=== PATIENT | female | born 1960 | race Caucasian/White ===

== ENCOUNTER → 2017-01-18 | Outpatient (CLI) | payer MEDICARE, MEDICAID ==
[~2017-01-18] MED LIST: ALBU0.632 IH; ALBU0.8322 IH; ALBU8.5H2 IH; ALPR.25T PO; ASP325T; ASP325T PO; ASPI-587 PO; ASPI-808 PO; ASPI-983 PO; ASPI325T32 PO; ATOR20TA66 PO; BENZ100C18 PO; BUTA1TAB55 PO; CALC-760 PO; CEPH500C PO; CLOP75TA PO; CLOP75TA28 PO; CYCL10TA9 PO; DIAZ10TA PO; DIAZ10TA3 PO; FENO135C; FENO135C PO; FENO160T PO; FENO160T12 PO; FLUT16SP22; FLUT16SP22 NSEACH; GLIP10TA13; GLIPIZIDE; GLUCOPHAGE; HDR4T PO; INSA10V SQ; INSASP10V SQ; INSU100I5; INSU100V6 SQ; ISM60TCR PO; ISOS30TA4 PO; ISOS30TA7 PO; LEVAMIR INSULIN; LEVO300T5 PO; LEVO50TA6 PO; LEVO50TA63 PO; LEVO750T6 PO; LIRA0.6P3 SQ; LISI5TAB PO; LOSA25TA15 PO; LOSA25TA21 PO; LSRT50T PO; LVT.15T; LVT.15T PO; MECL50TA PO; MELO7.5T PO; MEPE50TA PO; MEPE50TA2 PO; METF1000 PO; METO-274 PO; METO100T2 PO; METO100T5 PO; METO200T2 PO; METO50TA7 PO; METOPROLOL; MTF500T PO; MTP50T; MTP50T PO; MULT-608 PO; NCT21TD TD; NF-ESOM40C PO; NFMET1000; NITR0.4T12 SL; NOVALOG INSULIN SC; NTR.4SL SL; OMEG1CAP51 PO; OMEP20CA12 PO; ONDAN4ODT PO; PRD20T PO; PROC10TA23 PO; PROP1TAB77 PO; RABE20TA PO; SCR1T PO; SYNTHROID; TRAM50TA2 PO; TRIA1CAP4 PO; TRM50T PO; [UNRECOGNIZED DRUG - CODE]
--- OUTSIDE RECORDS SUMMARY | 2017-01-18 09:52 | XMS REPORT | Continuity of Care Document ---
Author Author [facility] Organization [facility] Address Unknown Phone Unavailable Care Team Providers Care Drapery Inspector Name Role Phone PCP Unavailable Source Comments Some departments are not documenting in the electronic medical record. If you do not see the information that you expected, contact Release of Information in the Health Information Management department at [phone] for further assistance in locating additional records.[facility] Active Allergies and Adverse Reactions Not on File Current Medications Not on file Active Problems Not on file Social History Tobacco Use Types Packs/Day Years Used Date Never Assessed Plan of Care Health Maintenance Due Date Last Done Comments Hepatitis C Screening 1960 Physical (Comprehensive) 1969 Exam Pertussis Vaccine 1973 Tetanus Vaccine 1979 Cervical Cancer Screening 1983 Breast Cancer Screening 2002 Colorectal Cancer 2012 Screening Influenza Vaccine 08/02/2016 Results from Last 3 Months Not on file
--- NOTE | 2017-01-18 12:28 | Diagnostic Imaging Report ---
Bilateral screening mammogram. The current study was also evaluated with a Computer Aided Detection (CAD) system. INDICATION: Screening. No current complaints stated on the questionnaire. COMPARISON: 11/04/2015. FINDINGS: The breasts are composed of scattered fibroglandular densities. Stable benign-appearing nodules from multiple prior exams seen bilaterally may relate to intramammary lymph nodes. Benign-appearing calcifications also noted. Allowing for technique and positional differences, no suspicious change is seen. IMPRESSION: No significant change. ACR BI-RADS Category 2: Benign findings. Result letter will be mailed to the patient. Note: At least 10% of breast cancer is not imaged by mammography. Dictated by: Dictated on workstation # [id number]
== END ==
LOC: RAD 09:49
PROVIDERS: ATTEND Internal Medicine
DX: Z12.31 Encounter for screening mammogram for malignant neoplasm of breast (principal)
CPT/HCPCS: 77067

== ENCOUNTER 2017-04-16 17:55 | Emergency (ER) | payer MEDICARE, MEDICAID ==
[~2017-04-16] VITALS: Ht 172.7 cm; Wt 112.9 kg
[2017-04-16] MEDS ORDERED: RT-ALBUTEROL/IPRATROPIUM 3 ML (DUONEB) VIAL INH ONE (18:30)
--- NOTE | 2017-04-16 19:01 | Diagnostic Imaging Report ---
CLINICAL INDICATION: Patient having allergic reaction that started a few hours ago. Patient has shortness of air. Exam: Chest x-ray PA and lateral views. Comparisons: Chest x-ray dated 03/28/2016. Findings: Lungs/pleura: There is interval development of a small area of atelectasis versus infiltrate in the left lung base. Otherwise lungs are clear. There is no pneumothorax. There is no pleural effusion. Mediastinum: Unremarkable. Pulmonary vasculature: Unremarkable. Heart: Unremarkable. Bones/extrathoracic soft tissue: There are moderately hypertrophic degenerative osteophytes scattered throughout the thoracic spine. Impression: There is interval development of minimal atelectasis versus infiltrate in the left lung base. Dictated by: Dictated on workstation # [id number]
[2017-04-16 19:18] LABS: BASOPHILS % (AUTO) 0 % (0-10); EOSINOPHILS % (AUTO) 0 % (0-10); LYMPHOCYTES # (AUTO) 1.6 X 10^3 (1.0-4.0); LYMPHOCYTES % (AUTO) 12 % (12-44); MEAN CORPUSCULAR HEMOGLOBIN 29 PG (25-34); MEAN CORPUSCULAR HGB CONC 33 G/DL (32-36); MEAN CORPUSCULAR VOLUME 89 FL (80-99); MEAN PLATELET VOLUME 10.8 FL (7.4-10.4); MONOCYTES # (AUTO) 0.5 X 10^3 (0.0-1.0); MONOCYTES % (AUTO) 4 % (0-12); NEUTROPHILS # (AUTO) 11.5 X 10^3 (1.8-7.8); NEUTROPHILS % (AUTO) 85 % (42-75); PLATELET COUNT 307 10^3/uL (130-400); RED BLOOD COUNT 4.73 10^6/uL (4.35-5.85); RED CELL DISTRIBUTION WIDTH 13.6 % (10.0-14.5); WHITE BLOOD COUNT 13.6 10^3/uL (4.3-11.0)
[2017-04-16 19:27] LABS: PROTHROMBIN TIME PATIENT 12.7 SEC (12.2-14.7)
--- NOTE | 2017-04-16 19:28 | ED General ---
General Chief Complaint: Respiratory Problems Stated Complaint: ALLERGIC REACTION, CHEST PAIN Nursing Triage Note: C/o progressive soa. Pt thinks she is having a allergic reaction. c/o tightness in abdomen and arms. No hives or rash noted. Redness noted to face however patients states her face is always red when taking prednison. Pt was seen at [facility] yesterday and started on Z-max and prednisone. Had chest pain last night. Nursing Sepsis Screen: No Definite Risk Source of Information: Patient Exam Limitations: No Limitations History of Present Illness Time Seen by Provider: 18:17 Initial Comments This 56-year-old woman presents to the emergency room with multiple complaints including cough, dyspnea, bloating, generalized skin erythema, tightness in the hands and feet, and blood sugar of 598 at home. She was seen at the [facility] walk- in clinic yesterday and started on prednisone 40 mg daily and azithromycin. She has had frequent nosebleeds as well. She had one episode of chest pain last night that was relieved by nitroglycerin. No chest pain today. She takes aspirin and Plavix daily. Review of her chart notes a cardiac catheterization in March 2016 in which angioplasty was performed. Patient continues to smoke despite her problems. Patient notes that she has had skin flushing with prior use of steroids. Allergies and Home Medications Allergies Coded Allergies: enalaprilat (Verified Allergy, Severe, 12/18/12) codeine (Verified Allergy, Intermediate, SWALLOWING DIFFICULTY, CAN TAKE MORPHINE W/O PROBLEM, 12/18/12) Iodinated Contrast Media - IV Dye (Verified Allergy, Mild, 12/18/12) furosemide (Verified Allergy, Mild, 12/18/12) hydrocodone (Verified Allergy, Mild, 12/18/12) insulin detemir (Verified Allergy, Mild, 12/18/12) amlodipine (Verified Allergy, Unknown, 12/18/12) Uncoded Allergies: ENALAPRIL (Allergy, Unknown, 10/29/14) Home Medications Aspirin 81 Mg Tablet., 81 MG PO DAILY, #100 Ref 4 Prescribed by: JOSESITO MERCADO on 03/29/16 0710 Atorvastatin Calcium 20 Mg Tablet, 20 MG PO DAILY, (Reported) Clopidogrel Bisulfate 75 Mg Tablet, 75 MG PO DAILY, (Reported) Diazepam 10 Mg Tablet, 10 MG PO BID, (Reported) Fenofibrate 160 Mg Tablet, 160 MG PO DAILY, (Reported) Fluticasone Propionate 16 Gm Perry.susp, 1 SPRAY NSEACH BID PRN for ALLERGIES, ( Reported) Insulin Glargine,Hum.rec.anlog 100 Unit/1 Ml Vial, 40 UNITS SQ HS, (Reported) Isosorbide Mononitrate 60 Mg Tab, 60 MG PO DAILY, (Reported) Levofloxacin 750 Mg Tablet, 750 MG PO UD, #2 take these doses on April 18 and April 20. Prescribed by: GRAHAM RAMIREZ on 04/16/172104 Levothyroxine Sodium 50 Mcg Tablet, 50 MCG PO DAILY, (Reported) Levothyroxine Sodium 300 Mcg Tablet, 300 MCG PO DAILY, (Reported) Liraglutide 0.6 Mg/0.1 Ml Pen.injctr, 1.8 MG SQ HS, (Reported) Losartan Potassium 25 Mg Tablet, 25 MG PO DAILY, (Reported) Meperidine HCl 50 Mg Tablet, 50 MG PO BID, (Reported) Metoprolol Succinate 100 Mg Tab.er.24h, 100 MG PO DAILY, (Reported) Nicotine 1 Each Patch.td24, 21 MG TD DAILY, #30 Prescribed by: GRAHAM RAMIREZ on 04/16/172104 Nitroglycerin 0.4 Mg Tab, 0 SL UD PRN for CHEST PAIN, (Reported) 1 TABLET EVERY 5 MINUTES X 3 DOSES NEEDED FOR CHEST PAIN [place]-3 Fatty Acids/Fish Oil 1 Each Capsule, 2,000 MG PO DAILY, (Reported) TAKES 2 (1000MG) CAPSULES DAILY Triamterene/Hydrochlorothiazid 1 Each Capsule, 1 TAB PO DAILY, (Reported) Constitutional: no symptoms reported EENTM: see HPI Respiratory: see HPI Cardiovascular: no symptoms reported Gastrointestinal: no symptoms reported Genitourinary: no symptoms reported : No Musculoskeletal: no symptoms reported Skin: see HPI Psychiatric/Neurological: No Symptoms Reported Hematologic/Lymphatic: No Symptoms Reported Past Ggsxyio-Mqnckz-Tthjgs Hx Patient Social History Alcohol Use: Denies Use Recreational Drug Use: No Smoking Status: Current Everyday Smoker Recent Foreign Travel: No Contact w/Someone Who Travel: No Recent Infectious Disease Expo: No Recent Hopitalizations: Yes Immunizations Up To Date Date of Pneumonia Vaccine: Sep 01, 2013 Date of Influenza Vaccine: Oct 08, 2013 Surgeries HX Surgeries: Yes (ventral hernia,CARPAL TUNNEL MATT, CARTID ENDARTERECTOMY) Surgeries: Abdominal, Coronary Stent, Orthopedic, Thyroidectomy, Vascular Surgery (right CEA) Respiratory Hx Respiratory Disorders: Yes (nocturnal hypoxemia requiring supplemental oxygen) Cardiovascular Hx Cardiac Disorders: Yes (STENT x2, ) Cardiac Disorders: Coronary Artery Disease (last cardiac catheter March 2016 with angioplasty), Heart Attack, Hypertension Neurological Hx Neurological Disorders: Yes (STROKE IN DECEMBER OF 2013) Neurological Disorders: Stroke Reproductive System : No Hx Reproductive Disorders: Yes Sexually Transmitted Disease: Yes (HPV) Genitourinary Hx Genitourinary Disorders: No Gastrointestinal Hx Gastrointestinal Disorders: No Gastrointestinal Disorders: Gall Bladder Disease Musculoskeletal Hx Musculoskeletal Disorders: Yes (ARTHRITISIS) Endocrine Hx Endocrine Disorders: Yes Endocrine Disorders: Diabetes, Insulin dep, Hypothyroidsim HEENT HX ENT Disorders: Yes (full set of dentures, lesion on palate) Cancer Hx Cancer: Yes Cancer: Cervical, Thyroid Psychosocial Hx Psychiatric Problems: Yes Behavioral Health Disorders: Anxiety Integumentary HX Skin/Integumentary Disorder: No Blood Transfusions Hx Blood Disorders: No Family Medical History Family Medial History: Cancer 03 FATHER, Onset:60 years & older 03 MOTHER, Onset:62 09 SISTER, Onset:53 Family history: Breast disease 09 SISTER, Onset:53 Family history: Cardiovascular disease 09 SISTER Family history: Gastrointestinal disease 09 SISTER (Crohns disease sister) History of - disorder 09 SISTER (Mental disorder bipolar) Malignant neoplasm of lung 09 SISTER (38 year old tumor in lung and monitoring) Psychotic disorder 09 SISTER, Onset:40's - 50 Visual impairment 03 FATHER, Onset:50's - 60 03 MOTHER, Onset:Adolescence 09 BROTHER (glasses) 09 SISTER, Onset:25's - 30 09 SISTER (glasses) 09 SISTER, Onset:15's - 20 09 SISTER, Onset:20's - 25 No Family History of: Abdominal aortic aneurysm Knightdale's disease Alcoholism Aphasia Cancer of colon Cataract Chest pain Congenital heart disease Congestive heart failure Cystic fibrosis Dementia Dysphagia Family history: Allergy Family history: Alzheimer's disease Family history: Arthritis Family history: Asthma Family history: Coronary thrombosis Family history: Diabetes mellitus Family history: Glaucoma Family history: Hypertension Family history: Osteoporosis Family history: Thyroid disorder Headache Hearing loss Heart disease Hereditary disease History of - anemia History of - respiratory disease History of drug abuse Human immunodeficiency virus (HIV) seropositivity Hypercholesterolemia Infertile Kidney disease Myocardial infarction Parkinson's disease Prostate cancer Seizure disorder Stroke Tuberculosis Physical Exam Vital Signs Vital Sign - Last 12Hours 04/16/17 18:46 Temp 97.5 Pulse 84 Resp 16 B/P (MAP) 131/81 Pulse Ox 95 O2 Delivery Room Air Capillary Refill : Less Than 3 Seconds General Appearance: No Apparent Distress, WD/WN HEENT: PERRL/EOMI, TMs Normal, Normal ENT Inspection, Pharynx Normal Neck: Normal Inspection Respiratory: Lungs Clear, Normal Breath Sounds, No Accessory Muscle Use, No Respiratory Distress, Other (coughing and wheezing with forced expiration) Cardiovascular: Regular Rate, Rhythm, No Edema Gastrointestinal: Normal Bowel Sounds, Non Tender, Soft Extremity: Normal Capillary Refill, Normal Inspection, Non Tender, No Calf Tenderness, No Pedal Edema Neurologic/Psychiatric: Alert, Oriented x3, No Motor/Sensory Deficits, Normal Mood/Affect, religion professor II-XII Norm as Tested Skin: Warm/Dry, Erythema Progress/Results/Core Measures Results/Orders Lab Results Laboratory Tests Test 04/16/17 19:05 04/16/17 20:33 Range/Units White Blood Count 13.6 H 4.3-11.0 10^3/uL Red Blood Count 4.73 4.35-5.85 10^6/uL Hemoglobin 13.9 11.5-16.0 G/DL Hematocrit 42 35-52 % Mean Corpuscular Volume 89 80-99 FL Mean Corpuscular Hemoglobin 29 25-34 PG Mean Corpuscular Hemoglobin Concent 33 32-36 G/DL Red Cell Distribution Width 13.6 10.0-14.5 % Platelet Count 307 130-400 10^3/uL Mean Platelet Volume 10.8 H 7.4-10.4 FL Neutrophils (%) (Auto) 85 H 42-75 % Lymphocytes (%) (Auto) 12 12-44 % Monocytes (%) (Auto) 4 0-12 % Eosinophils (%) (Auto) 0 0-10 % Basophils (%) (Auto) 0 0-10 % Neutrophils # (Auto) 11.5 H 1.8-7.8 X 10^3 Lymphocytes # (Auto) 1.6 1.0-4.0 X 10^3 Monocytes # (Auto) 0.5 0.0-1.0 X 10^3 Eosinophils # (Auto) 0.0 0.0-0.3 10^3/uL Basophils # (Auto) 0.0 0.0-0.1 10^3/uL Prothrombin Time 12.7 12.2-14.7 SEC INR Comment 1.0 0.8-1.4 Activated Partial Thromboplast Time 24 24-35 SEC Sodium Level 133 L 135-145 MMOL/L Potassium Level 4.5 3.6-5.0 MMOL/L Chloride Level 95 L 98-107 MMOL/L Carbon Dioxide Level 23 21-32 MMOL/L Anion Gap 15 H 5-14 MMOL/L Blood Urea Nitrogen 17 7-18 MG/DL Creatinine 1.62 H 0.60-1.30 MG/DL Estimat Glomerular Filtration Rate 33 BUN/Creatinine Ratio 10 Glucose Level 487 *H 70-105 MG/DL Calcium Level 9.9 8.5-10.1 MG/DL Magnesium Level 1.8 1.8-2.4 MG/DL Total Bilirubin 0.3 0.1-1.0 MG/DL Aspartate Amino Transf (AST/SGOT) 11 5-34 U/L Alanine Aminotransferase (ALT/SGPT) 14 0-55 U/L Alkaline Phosphatase 72 40-136 U/L Myoglobin 46.8 10.0-92.0 NG/ML Troponin I < 0.30 <0.30 NG/ML Total Protein 7.7 6.4-8.2 G/DL Albumin 4.1 3.2-4.5 G/DL Thyroid Stimulating Hormone (TSH) 0.06 L 0.35-4.94 UIU/ML Free Thyroxine 1.75 H 0.70-1.48 NG/DL Glucometer 298 H 70-110 MG/DL My Orders Orders - GRAHAM LEA MD Cbc With Automated Diff (04/16/17 18:30) Magnesium (04/16/17 18:30) Ekg Tracing (04/16/17 18:30) Cardiac Profile 1 (04/16/17 18:30) Comprehensive Metabolic Panel (04/16/17 18:30) Myoglobin Serum (04/16/17 18:30) Protime With Inr (04/16/17 18:30) Partial Thromboplastin Time (04/16/17 18:30) O2 (04/16/17 18:30) Monitor-Rhythm Ecg Trace Only (04/16/17 18:30) Saline Lock/Iv-Start (04/16/17 18:30) Chest Pa/Lat (2 View) (04/16/17 18:30) Thyroid Stimulating Hormone (04/16/17 18:30) Free T4 (Free Thyroxine) (04/16/17 18:30) Albuterol/Ipra Inhalation Soln (Duoneb I (04/16/17 18:30) Svn Sm Volume Nebulizer Rt-Rfs (04/16/17 18:30) Insulin (Regular) Human (Humulin R (Per (04/16/17 19:45) Ns Iv 1000 Ml (Sodium Chloride 0.9%) (04/16/17 19:43) Accucheck Stat ONCE (04/16/17 19:45) Levofloxacin Tablet (Levaquin Tablet) (04/16/17 20:00) Medications Given in ED Current Medications Medications Dose Ordered Sig/Johnny Route Start Time Stop Time Status Last Admin Dose Admin Albuterol/ Ipratropium 3 ml ONCE ONCE INH 04/16/17 18:30 04/16/17 18:34 DC 04/16/17 18:47 3 ML Insulin Human Regular 10 unit ONCE ONCE IV 04/16/17 19:45 04/16/17 19:46 DC 04/16/17 19:55 10 UNIT Levofloxacin 750 mg ONCE ONCE PO 04/16/17 20:00 04/16/17 20:04 DC 04/16/17 21:30 750 MG Sodium Chloride 1,000 ml @ 0 mls/hr Q0M ONCE IV 04/16/17 19:43 04/16/17 19:45 DC 04/16/17 19:55 1,000 MLS/HR Vital Signs/I&O Vital Sign - Last 12Hours 04/16/17 04/16/17 04/16/17 18:46 18:47 21:34 Temp 97.5 Pulse 84 71 Resp 16 20 B/P (MAP) 131/81 Pulse Ox 95 96 96 O2 Delivery Room Air Intake and Output 04/17/17 00:00 Intake Total 1000 ml Balance 1000 ml Blood Pressure Mean: 98 Progress Note : Progress Note Patient was found to have a elevated creatinine. A liter of IV fluids was administered along with 10 units of insulin by IV route. Blood sugars improved significantly. Patient was thought to have a left lower lobe pneumonia after review of labs and x-ray. Antibiotic therapy was changed to Levaquin for more robust treatment. A DuoNeb treatment was provided. Because of the significant hyperglycemia, patient was advised to reduce her prednisone dosage from 40 mg to 10 mg. Cardiac workup was unremarkable. Patient was advised to follow-up with Dr. Mercado given her history of cardiac disease and the chest pain last night relieved by nitroglycerin. ECG Initial ECG Impression Date: April 16, 2017 Initial ECG Impression Time: 19:17 Initial ECG Rate: 81 Initial ECG Rhythm: Normal Sinus Initial ECG Intervals: Normal Initial ECG Impression: Normal Comment Normal sinus rhythm with no ST elevation or depression. No abnormal intervals or axis deviation. Diagnostic Imaging Diagonstic Imaging: Xray Plain Films/CT/US/NM/MRI: chest Comments chest x-ray reviewed by me and report reviewed. See report below: NAME: NICOLLE WILCOX [facility] REC#: [id number] PT STATUS: REG ER : 1960 PHYSICIAN: GRAHAM LEA MD ADMIT DATE: 04/16/17/ER Draft Date of Exam:04/16/17 CHEST PA/LAT (2 VIEW) CLINICAL INDICATION: Patient having allergic reaction that started a few hours ago. Patient has shortness of air. Exam: Chest x-ray PA and lateral views. Comparisons: Chest x-ray dated 03/28/2016. Findings: Lungs/pleura: There is interval development of a small area of atelectasis versus infiltrate in the left lung base. Otherwise lungs are clear. There is no pneumothorax. There is no pleural effusion. Mediastinum: Unremarkable. Pulmonary vasculature: Unremarkable. Heart: Unremarkable. Bones/extrathoracic soft tissue: There are moderately hypertrophic degenerative osteophytes scattered throughout the thoracic spine. Impression: There is interval development of minimal atelectasis versus infiltrate in the left lung base. Dictated on workstation # [id number] Dict: 04/16/17 1856 Trans: 04/16/17 1900 [id number] Interpreted by: MARIO ALBERTO MENEZES MD Departure Impression Impression: Primary Impression: Pneumonia Qualified Codes: J18.1 - Lobar pneumonia, unspecified organism Additional Impressions: Chest pain Qualified Codes: R07.9 - Chest pain, unspecified Dyspnea Qualified Codes: R06.00 - Dyspnea, unspecified Hyperglycemia Renal insufficiency Disposition: HOME, SELF-CARE Condition: Improved Departure-Patient Inst. Decision time for Depature: 21:00 Referrals: CAMILO NEGRETE MD (PCP/Family) Primary Care Physician Patient Instructions: Pneumonia, Adult (DC) Add. Discharge Instructions: Drink plenty of clear liquids. Complete your antibiotic as prescribed. Your next dose should be taken on April 18. Use your albuterol nebulizer therapies up to every 4 hours as needed for shortness of breath. Please follow-up with your primary care provider soon as possible. Also follow-up with Dr. Mercado as soon as possible. Please call tomorrow morning for appointments. Return to the emergency room if symptoms worsen. If you choose to continue prednisone, please reduce the dose to 10 mg per day to help control your blood sugars. Work toward smoking cessation. Work with your doctor to accomplish this. All discharge instructions reviewed with patient and/or family. Voiced understanding. Scripts Nicotine (Nicotine Patch) 1 Each Patch.td24 21 MG TD DAILY, #30 PATCH Prov: GRAHAM LEA MD 04/16/17 Levofloxacin (Levaquin) 750 Mg Tablet 750 MG PO UD, #2 TAB take these doses on April 18 and April 20. Prov: GRAHAM LEA MD 04/16/17 Copy Copies To 1: JOSESITO MERCADO MD Copies To 2: CAMILO NEGRETE MD, JOSHUA T MD April 16, 2017 19:28
[2017-04-16 19:38] LABS: ALANINE AMINOTRANSFERASE 14 U/L (0-55); ALBUMIN 4.1 G/DL (3.2-4.5); ANION GAP 15 MMOL/L (5-14); ASPARTATE AMINO TRANSFERASE 11 U/L (5-34); BILIRUBIN,TOTAL 0.3 MG/DL (0.1-1.0); BLOOD UREA NITROGEN 17 MG/DL (7-18); BUN/CREATININE RATIO 10; CALCIUM 9.9 MG/DL (8.5-10.1); CARBON DIOXIDE 23 MMOL/L (21-32); CHLORIDE 95 MMOL/L (98-107); CREATININE SERUM 1.62 MG/DL (0.60-1.30); GFR ESTIMATED 33; MAGNESIUM 1.8 MG/DL (1.8-2.4); POTASSIUM 4.5 MMOL/L (3.6-5.0); SODIUM 133 MMOL/L (135-145); TOTAL PROTEIN 7.7 G/DL (6.4-8.2)
[2017-04-16 19:41] LABS: GLUCOSE 487 MG/DL (70-105)
[2017-04-16] MEDS ORDERED: NS IV 1000 ML 1,000 ML IV ONE (19:43)
[2017-04-16 19:45] LABS: MYOGLOBIN SERUM 46.8 NG/ML (10.0-92.0)
[2017-04-16] MEDS ORDERED: inSUlin (REGULAR) HUMAN 1 UNIT/0.01 ML (CHARGE PER UNIT) IV ONE (19:45)
[2017-04-16 19:58] LABS: THYROID STIMULATING HORMONE 0.06 UIU/ML (0.35-4.94)
[2017-04-16] MEDS ORDERED: LEVOFLOXACIN 750 MG TAB (LEVAQUIN) PO ONE (20:00)
[2017-04-16] MEDS ORDERED: NCT21TD TD (21:05)
[2017-04-16] MEDS ORDERED: LEVO750T9 PO (21:05)
[2017-04-16 21:34] VITALS: BP 140/84
== END 2017-04-16 21:34 | disposition home or self-care (01) ==
LOC: EDUNIT# 17:55 → ER 17:58
DX: J18.9 Pneumonia, unspecified organism (principal); R06.00 Dyspnea, unspecified; N28.9 Disorder of kidney and ureter, unspecified; E11.65 Type 2 diabetes mellitus with hyperglycemia; I10 Essential (primary) hypertension; I25.10 Atherosclerotic heart disease of native coronary artery without angina pectoris; F17.210 Nicotine dependence, cigarettes, uncomplicated; Z79.4 Long term (current) use of insulin; Z79.02 Long term (current) use of antithrombotics/antiplatelets; Z79.82 Long term (current) use of aspirin; Z79.899 Other long term (current) drug therapy; Z95.5 Presence of coronary angioplasty implant and graft
CPT/HCPCS: 36415; 71020; 80053; 82962; 83735; 83874; 84439; 84443; 84484; 85025; 85610; 85730; 93005; 93041; 94640; 96361; 96374

== ENCOUNTER 2017-10-22 09:09 | Outpatient (CLI) | payer MEDICARE, MEDICAID ==
[~2017-10-22] VITALS: Ht 172.7 cm; Wt 106.3 kg
[~2017-10-22 09:09] MED LIST changes: +LEVO750T9 PO; -METO-274 PO; +METO-395 PO; +NICO-588 TD
[2017-10-22] MEDS ORDERED: ASPI-586 PO (09:27)
[2017-10-22] MEDS ORDERED: NITR0.4T39 SL (09:27)
[2017-10-22] MEDS ORDERED: ATOR20TA49 PO (09:27)
[2017-10-22] MEDS ORDERED: INSU100V16 SQ (09:27)
[2017-10-22] MEDS ORDERED: OMEG-77 PO (09:27)
[2017-10-22] MEDS ORDERED: METF1000 PO (09:27)
[2017-10-22] MEDS ORDERED: MEPE50TA4 PO (09:27)
[2017-10-22] MEDS ORDERED: FENO160T6 PO (09:27)
[2017-10-22] MEDS ORDERED: LOSA25TA2 PO (09:27)
[2017-10-22 09:33] VITALS: BP 115/69
[2017-10-22 10:15] LABS: BILIRUBIN,URINE NEGATIVE (NEGATIVE); KETONES,URINE NEGATIVE (NEGATIVE); LEUKOCYTE ESTERASE ,URINE NEGATIVE (NEGATIVE); NITRITE,URINE NEGATIVE (NEGATIVE); PH,URINE 7 (5-9); PROTEIN,URINE NEGATIVE (NEGATIVE); UROBILINOGEN,URINE NORMAL (NORMAL)
[2017-10-22 10:16] LABS: BASOPHILS % (AUTO) 1 % (0-10); EOSINOPHILS # (AUTO) 0.3 10^3/uL (0.0-0.3); EOSINOPHILS % (AUTO) 3 % (0-10); LYMPHOCYTES # (AUTO) 1.9 X 10^3 (1.0-4.0); LYMPHOCYTES % (AUTO) 23 % (12-44); MEAN CORPUSCULAR HEMOGLOBIN 30 PG (25-34); MEAN CORPUSCULAR HGB CONC 33 G/DL (32-36); MEAN CORPUSCULAR VOLUME 90 FL (80-99); MEAN PLATELET VOLUME 11.1 FL (7.4-10.4); MONOCYTES # (AUTO) 0.5 X 10^3 (0.0-1.0); MONOCYTES % (AUTO) 6 % (0-12); NEUTROPHILS # (AUTO) 5.5 X 10^3 (1.8-7.8); NEUTROPHILS % (AUTO) 68 % (42-75); PLATELET COUNT 276 10^3/uL (130-400); RED BLOOD COUNT 4.77 10^6/uL (4.35-5.85); RED CELL DISTRIBUTION WIDTH 13.4 % (10.0-14.5); WHITE BLOOD COUNT 8.1 10^3/uL (4.3-11.0)
[2017-10-22 10:31] LABS: CALCIUM 9.8 MG/DL (8.5-10.1); CREATININE SERUM 1.36 MG/DL (0.60-1.30); POTASSIUM 5.4 MMOL/L (3.6-5.0)
== END 2017-10-22 14:51 | disposition home or self-care (01) ==
LOC: PREOP 09:09
PROVIDERS: ATTEND Obstetrics & Gynecology
DX: Z01.812 Encounter for preprocedural laboratory examination (principal); N81.10 Cystocele, unspecified; N81.6 Rectocele; N39.3 Stress incontinence (female) (male)
CPT/HCPCS: 36415; 80048; 81000; 85025; 87081

== ENCOUNTER → 2018-06-27 | Outpatient (CLI) | payer MEDICARE, MEDICAID ==
[~2018-06-27] MED LIST changes: +ASPI-586 PO; +ATOR20TA49 PO; +FENO160T6 PO; +IBUP-1773 PO; +INSU100V16 SQ; +LOSA25TA2 PO; +MEPE50TA4 PO; +METF10002 PO; +NITR0.4T39 SL; +OMEG-77 PO
--- NOTE | 2018-06-27 10:35 | Diagnostic Imaging Report ---
PROCEDURE: MRI lumbar spine. TECHNIQUE: Multiplanar, multisequence MRI of the lumbar spine was performed without contrast. INDICATION: Back pain. There are no previous MRI examinations available for comparison. This study is less than optimal due to motion artifact. The T2 sagittal images show the vertebrae body heights and alignment to be generally within normal limits. There is desiccation of the disc at every level. The disc spaces are fairly well-maintained with the exception of L5-S1 which is slightly narrowed. At the L1-2 level there is a slight disc bulge centrally. The AP diameter of thecal sac is narrowed to 11.3 mm. There is no significant narrowing of the neural foramen. At L2-3 there is also mild disc bulge centrally. The AP diameter of thecal sac is narrowed to 10.6 mm. There is no neuroforaminal narrowing at this level either. At L3-4 the thecal sac is narrowed to 10.3 mm. There is no significant neural foraminal narrowing at this level. At the L4-5 level the AP diameter of thecal sac measures 12.3 mm. There is no neuroforaminal narrowing at this level. At L5-S1 there does not appear to be any central stenosis. However there is narrowing of the neural foramen bilaterally at this level, particularly on the left. There is no abnormal signal arising from the cord or vertebral bodies to indicate acute abnormality. There is no sign of a paraspinal mass. IMPRESSION: 1. There is moderate degenerative disc disease throughout the lumbar spine. While there is no evidence is for a high-grade central stenosis at any level there does appear be narrowing of the neural foramen bilaterally at L5-S1, particularly on the left. 2. There is no sign acute bony abnormality or of a cord lesion. Dictated by: Dictated on workstation # [id number]
== END ==
LOC: RAD 07:46
PROVIDERS: ATTEND Internal Medicine
DX: M51.16 Intervertebral disc disorders with radiculopathy, lumbar region (principal)
CPT/HCPCS: 72148

== ENCOUNTER → 2019-05-08 | Outpatient (CLI) | payer MEDICARE, MEDICAID ==
[~2019-05-08] MED LIST changes: -LOSA25TA21 PO; +LOSA25TA41 PO; -MEPE50TA4 PO; +MEPE50TA7 PO; +METF-399 PO; -METF10002 PO; +REGADENOSON 0.4 MG/5 ML SYR (LEXISCAN) IV ONE
[2019-05-08] MEDS: CATHETER FLUSH 10 ML SYR IV PRN ×2 (07:18→08:04)
[2019-05-08 08:02] VITALS: BP 159/80
--- NOTE | 2019-05-08 15:31 | STRESS TEST ---
DATE OF SERVICE: 05/08/2019 LEXISCAN MYOVIEW STRESS TEST REPORT REFERRING PHYSICIAN: Dr. Shubham Miller and Dr. Melchor Curran. Baseline heart rate is 75. Baseline blood pressure is 159/78. Baseline EKG is sinus rhythm with no ischemic changes. In summary, the patient was injected with 10.62 mCi of technetium-99 Myoview and the resting images were obtained. Then, the patient received 0.4 mg of Lexiscan followed by 32.2 mCi of technetium-99 Myoview. Throughout the test, there were no EKG changes. The resting and stress images were reviewed and compared in the short axis, horizontal long axis, and vertical long axis views. Review of the images showed breast attenuation affecting the quality of the images. There is decreased uptake at the mid to apical inferior wall with subtle reversibility, no significant ischemia or infarction was seen. SSS is 4, SDS 2, TID value of 1.1. On the gated images, the left ventricle appeared to be normal size with normal contractility. Calculated ejection fraction is 64%. Due to the extracardiac attenuation and a borderline stress test, the patient is considered as intermediate risk for perioperative cardiovascular complications, decision regarding the surgery, risks versus benefits is deferred to the surgeon. Job ID: [id number] DocumentID: [id number] Dictated Date: 05/08/2019 12:25:34 Assistant Foreman Date: 05/08/2019 15:30:20 Dictated By: JOSESITO ROCHA MD
== END ==
LOC: CARD 05-06 08:39
PROVIDERS: ATTEND Internal Medicine Cardiovascular Disease
DX: I25.10 Atherosclerotic heart disease of native coronary artery without angina pectoris (principal); I65.29 Occlusion and stenosis of unspecified carotid artery; I63.9 Cerebral infarction, unspecified; R06.09 Other forms of dyspnea; I10 Essential (primary) hypertension
CPT/HCPCS: 78452; 93017

== ENCOUNTER → 2020-01-27 | Outpatient (CLI) | payer MEDICARE, MEDICAID ==
[~2020-01-27] MED LIST changes: +MEPE50TA32 PO; -MEPE50TA7 PO; -METO-395 PO; +MTP100TCR PO; -REGADENOSON 0.4 MG/5 ML SYR (LEXISCAN) IV ONE; -TRAM50TA2 PO
--- NOTE | 2020-01-27 16:02 | Diagnostic Imaging Report ---
INDICATION: Routine screening. COMPARISON: Comparison is made with prior mammograms from 01/18/2017 and 11/04/2015. 2-D and 3-D bilateral screening mammography was performed. The current study was also evaluated with a Computer Aided Detection (CAD) system. 3-D tomosynthesis was also performed and reviewed. FINDINGS: Scattered fibroglandular densities are identified bilaterally. Benign calcifications in both breasts are again noted. Circumscribed nodules in the left breast appear stable. No new mass or malignant-appearing microcalcifications are seen. Axillae are unremarkable. IMPRESSION: No mammographic features suspicious for malignancy are identified. ACR BI-RADS Category 2: Benign findings. Result letter will be mailed to the patient. Note: At least 10% of breast cancer is not imaged by mammography. Dictated by: Dictated on workstation # [id number]
== END ==
LOC: RAD 14:30
PROVIDERS: ATTEND Internal Medicine
DX: Z12.31 Encounter for screening mammogram for malignant neoplasm of breast (principal)
CPT/HCPCS: 77067

== ENCOUNTER → 2021-02-03 | Outpatient (CLI) | payer MEDICARE, MEDICAID ==
[~2021-02-03] MED LIST changes: +ASPI-1238 PO; -ASPI-983 PO; +ISOS60TA63 PO; -MEPE50TA32 PO; -NICO-588 TD; +NICO-685 TD
--- NOTE | 2021-02-03 12:09 | Diagnostic Imaging Report ---
Indication: Routine screening. Comparison is made with prior mammogram 01/27/2020 and 01/18/2017. 2-D and 3-D bilateral screening mammography was performed with CAD. Scattered fibroglandular densities are identified bilaterally. Benign nodule left breast is stable. There are benign calcifications in both breasts. No spiculated mass or malignant appearing microcalcifications are seen. Axillae are unremarkable. IMPRESSION: BI-RADS Category 2 No mammographic features suspicious for malignancy are identified. ACR BI-RADS Category 2: Benign findings. Result letter will be mailed to the patient. Note: At least 10% of breast cancer is not imaged by mammography. Dictated by: Dictated on workstation # [id number]
== END ==
LOC: RAD 11:21
PROVIDERS: ATTEND Internal Medicine
DX: Z12.31 Encounter for screening mammogram for malignant neoplasm of breast (principal)
CPT/HCPCS: 77063; 77067

== ENCOUNTER 2021-11-06 06:06 | Outpatient (CLI) | payer MEDICARE, MEDICAID ==
[~2021-11-06] VITALS: Ht 170.2 cm; Wt 114.0 kg
[~2021-11-06 06:06] MED LIST changes: +CYCL10TA25 PO; -CYCL10TA9 PO
[2021-11-06] MEDS ORDERED: ASPI-999 PO (15:10)
[2021-11-06] MEDS ORDERED: INSU100I14 SQ (15:10)
[2021-11-06] MEDS ORDERED: LEVO200T PO (15:10)
[2021-11-06] MEDS ORDERED: INSU100I32 SQ (15:10)
[2021-11-06] MEDS ORDERED: DOCU-143 PO (15:10)
[2021-11-06] MEDS ORDERED: HYDR2TAB30 PO (15:10)
== END 2021-11-06 16:07 | disposition home or self-care (01) ==
LOC: PREOP 06:06
PROVIDERS: ATTEND Surgery
DX: Z01.818 Encounter for other preprocedural examination (principal)

== ENCOUNTER 2021-11-13 09:29 | Day surgery (SDC) | payer MEDICARE, MEDICAID ==
[~2021-11-13] VITALS: Ht 170.2 cm; Wt 114.0 kg
[~2021-11-13 09:29] MED LIST changes: +ASPI-999 PO; +DOCU-143 PO; +HYDR2TAB30 PO; +INSU100I14 SQ; +INSU100I32 SQ; +LEVO200T PO
[2021-11-13] MEDS ORDERED: LACTATED RINGERS 1,000 ML IV ONE (09:38)
[2021-11-13] MEDS ORDERED: LACTATED RINGERS 1,000 ML IV STA (09:42)
[2021-11-13 09:45] VITALS: BP 115/46
--- NOTE | 2021-11-13 10:43 | Progress Note-Pre Operative ---
Pre-Operative Progress Note H&P Reviewed The H&P was reviewed, patient examined and no changes noted. Time Seen by Provider: 10:42 Date H&P Reviewed: Nov 13, 2021 Time H&P Reviewed: 10:42 Pre-Operative Diagnosis: Screening colonoscopy TRINI HERNANDEZ DO Nov 13, 2021 10:43
[2021-11-13] MEDS ORDERED: proPOfol 200 MG/20 ML (DIPRIVAN) VIAL IV ONE ×2 (11:02→11:21)
[2021-11-13] MEDS ORDERED: MIDAZOLAM 2 MG/2 ML (VERSED) VIAL ONE (11:02)
[2021-11-13 11:40] VITALS: BP 103/52
[2021-11-13 11:45] VITALS: BP 103/56
[2021-11-13 11:50] VITALS: BP 119/56
--- NOTE | 2021-11-13 11:55 | Endoscopy Discharge Instruct ---
Endo Procedure/Findings Findings 1.: Polyp 2.: Internal Hemorrhoids Discharge Instructions - Activity: You might feel a little sleepy until tomorrow. This is due to the medicine you received to relax you. Until tomorrow, you should: NOT drive a car, operate machinery or power tools. NOT drink any alcoholic beverages. NOT make any important decisions or sign importortant papers. Do not return to work until tomorrow, unless otherwise instructed. Resume previous activities tomorrow. Diet: Start by taking liquids. If you tolerate liquids, advance to solid food. 1.: Colonscopy in 5 years Notify Physician - If you experience excessive bleeding, unusual abdominal pain, fever, or chest pain, contact your doctor immediately. TRINI HERNANDEZ DO Nov 13, 2021 11:55
--- NOTE | 2021-11-13 11:55 | Progress Note-Post Operative ---
Post-Operative Progess Note Surgeon (s)/Landscaping Crew Leader (s) Surgeon TRINI HERNANDEZ DO Landscaping Crew Leader: EMILY Randall Pre-Operative Diagnosis Screening colonoscopy Post-Operative Diagnosis polyp int hemorrhoids Procedure & Operative Findings Date of Procedure 11/13/21 Procedure Performed/Findings Colonoscopy with snare polypectomy PROCEDURE NOTE: After informed consent was obtained, the patient was brought to the endoscopy suite, placed in bed in left lateral decubitus position. She was administered IV sedation by the LEVER TENDER who then monitored her vitals the entire time, heart rate, blood pressure and pulse ox and the scope was inserted, pushed all the way to about 150 cm and pushed into the cecum, took a picture of appendiceal orifice and then noted a polyp almost in the orifice. Elected to do a snare polypectomy to completely remove it. Then slowly withdrew the scope insufflating to look circumferentially at the umana starting in the cecum, up the ascending colon to the hepatic flexure, then down the transverse colon, splenic flexure, into the descending colon down into the sigmoid and then into the rectal vault and retroflexed he scope. Took picture of the internal hemorrhoids. The patient tolerated the procedure. She was recovered in endoscopy suite. Pt will need repeat colonoscopy in 5 years. Anesthesia Type IV sedation by LEVER TENDER Estimated Blood Loss Estimated blood loss (mL): scant Specimens/Packing Specimens Removed appendiceal/cecal polyp TRINI HERNANDEZ DO Nov 13, 2021 11:55
[2021-11-13 12:05] VITALS: BP 125/75
[2021-11-13 12:16] VITALS: BP 125/75
--- NOTE | 2021-11-13 13:48 | Anesthesia-General Post-Op ---
MAC Patient Condition Mental Status/LOC: Same as Preop Cardiovascular: Satisfactory Nausea/Vomiting: Absent Respiratory: Satisfactory Pain: Controlled Complications: Absent Post Op Complications Complications None Follow Up Care/Instructions Patient Instructions None needed. Anesthesiology Discharge Order Discharge Order Patient is doing well, no complaints, stable vital signs, no apparent adverse anesthesia problems. No complications reported per nursing. NAHOMY HOLCOMB CRNA Nov 13, 2021 13:48
== END 2021-11-13 12:15 | disposition home or self-care (01) ==
LOC: ENDO 09:29
PROVIDERS: ATTEND Surgery
DX: Z12.11 Encounter for screening for malignant neoplasm of colon (principal); D12.1 Benign neoplasm of appendix; K64.8 Other hemorrhoids; K59.09 Other constipation; E03.9 Hypothyroidism, unspecified; E11.9 Type 2 diabetes mellitus without complications; I10 Essential (primary) hypertension; I25.10 Atherosclerotic heart disease of native coronary artery without angina pectoris; F17.210 Nicotine dependence, cigarettes, uncomplicated; K21.9 Gastro-esophageal reflux disease without esophagitis; E66.9 Obesity, unspecified; Z79.82 Long term (current) use of aspirin; Z79.899 Other long term (current) drug therapy; Z86.73 Personal history of transient ischemic attack (TIA), and cerebral infarction without residual deficits; Z99.81 Dependence on supplemental oxygen; Z79.02 Long term (current) use of antithrombotics/antiplatelets; Z79.890 Hormone replacement therapy; Z68.41 Body mass index [BMI] 40.0-44.9, adult; Z79.4 Long term (current) use of insulin; Z90.49 Acquired absence of other specified parts of digestive tract; Z98.890 Other specified postprocedural states
CPT/HCPCS: 88305

== ENCOUNTER 2021-12-13 13:52 | Emergency (ER) | payer MEDICARE, MEDICAID ==
[~2021-12-13] VITALS: Ht 170 cm; Wt 113.0 kg
[2021-12-13] MEDS ORDERED: NS IV 1000 ML 1,000 ML IV SCH (15:15)
[2021-12-13 15:35] LABS: ALBUMIN 3.6 GM/DL (3.2-4.5); POTASSIUM 4.4 MMOL/L (3.6-5.0)
[2021-12-13 15:36] LABS: BASOPHILS # (AUTO) 0.1 10^3/uL (0.0-0.1); BASOPHILS % (AUTO) 0 % (0-10); CALCIUM 8.8 MG/DL (8.5-10.1); EOSINOPHILS # (AUTO) 0.1 10^3/uL (0.0-0.3); EOSINOPHILS % (AUTO) 0 % (0-10); HEMATOCRIT 34 % (35-52); HEMOGLOBIN 12.1 g/dL (11.5-16.0); LYMPHOCYTES # (AUTO) 1.3 X 10^3 (1.0-4.0); LYMPHOCYTES % (AUTO) 7 % (12-44); MEAN CORPUSCULAR HEMOGLOBIN 29 pg (25-34); MEAN CORPUSCULAR HGB CONC 36 g/dL (32-36); MEAN CORPUSCULAR VOLUME 80 fL (80-99); MEAN PLATELET VOLUME 9.5 fL (9.0-12.2); MONOCYTES # (AUTO) 0.7 X 10^3 (0.0-1.0); MONOCYTES % (AUTO) 4 % (0-12); NEUTROPHILS % (AUTO) 84 % (42-75); PLATELET COUNT 310 10^3/uL (130-400); WHITE BLOOD COUNT 17.9 10^3/uL (4.3-11.0)
[2021-12-13 15:37] LABS: TOTAL PROTEIN 7.3 GM/DL (6.4-8.2)
[2021-12-13 15:39] LABS: BILIRUBIN,TOTAL 0.6 MG/DL (0.1-1.0); PROTHROMBIN TIME PATIENT 13.1 SEC (12.2-14.7)
[2021-12-13 15:41] LABS: CREATININE SERUM 0.86 MG/DL (0.60-1.30)
--- NOTE | 2021-12-13 15:45 | Diagnostic Imaging Report ---
EXAMINATION: Chest, one view. HISTORY: Cough and malaise. COMPARISON: 03/28/2016. FINDINGS: There is prominence of the right hilum. No pleural effusion or pneumothorax. No edema or pneumonia. Heart size is normal. IMPRESSION: 1. Prominence of the right hilum concerning for lymphadenopathy or a mass. Chest CT with contrast is recommended. Dictated by: Dictated on workstation # [id number]
--- NOTE | 2021-12-13 16:09 | ED General ---
General Chief Complaint: General Problems/Pain Stated Complaint: LOW SODIUM LEVELS Nursing Triage Note: PT AMB TO FT2 PT CO OF FEELING WEAK FOR A FEW WEEKS AND HAD NA+ DRAWN TODAY THAT IS 112. SENT TO ED BY DR NEGRETE'S OFFICE. Source of Information: Patient Exam Limitations: No Limitations History of Present Illness Date Seen by Provider: Dec 13, 2021 Time Seen by Provider: 14:00 Initial Comments Patient is a 61-year-old female who presents to the emergency department with a chief complaint of generalized weakness, lower extremity edema, coarse wet cough that is productive of clear sputum. Symptoms have been going on for several weeks, just before [place]. Patient is COVID vaccinated in May and June 2021. No booster. No recent COVID-positive contacts that are known. Denies any problems with bowel or bladder does have urinary hesitancy, frequently has to cough or strain to urinate. No known history of coronary artery disease. Is a diabetic, is a heavy smoker. Uses inhalers at home. Had a hospitalization a couple of weeks ago for hyponatremia at [facility]. Was taken off diuretics but recently restarted Bumex 1 mg daily a week ago. No etiology was found for her hypeonatremia at previous hospitalization History of thyroidectomy. She had labs drawn today at [facility] and was sent by [facility] clinic for sodium level of 111. She does endorse a little confusion, unsteady gait, mild bitemporal headache. Slight blurry vision. Timing/Duration: Constant, Getting Worse Severity: Moderate Associated Systoms: Cough, Malaise, Weakness Allergies and Home Medications Allergies Coded Allergies: enalapril (Verified Allergy, Severe, THROAT SWELLING, 10/22/17) codeine (Verified Allergy, Intermediate, SWALLOWING DIFFICULTY, CAN TAKE MORPHINE W/O PROBLEM, 10/22/17) Iodinated Contrast- Oral and IV Dye (Verified Allergy, Mild, 10/22/17) furosemide (Verified Allergy, Mild, 10/22/17) hydrocodone (Verified Allergy, Mild, 10/22/17) insulin detemir (Verified Allergy, Mild, 10/22/17) morphine (Verified Allergy, Mild, N/V, 10/22/17) amlodipine (Verified Allergy, Unknown, 10/22/17) Patient Home Medication List Home Medication List Reviewed: Yes Aspirin (Aspirin) 81 Mg Tab.chew, 81 MG PO DAILY, (Reported) Entered as Reported by: JAMES RODGERS on 11/06/211509 Atorvastatin Calcium (Lipitor) 20 Mg Tablet, 20 MG PO DAILY, (Reported) Entered as Reported by: STEPHANIE CARDOZO on 10/22/17926 Clopidogrel Bisulfate (Clopidogrel) 75 Mg Tablet, 75 MG PO DAILY, (Reported) Entered as Reported by: JULIANO ESTRADA on 03/28/161157 Diazepam (Diazepam) 10 Mg Tablet, 10 MG PO BID, (Reported) Entered as Reported by: JULIANO ESTRADA on 03/28/161157 Docusate Sodium (Colace) 100 Mg Capsule, 100 MG PO DAILY, (Reported) Entered as Reported by: JAMES RODGERS on 11/06/211509 Fenofibrate Nanocrystallized (Triglide) 160 Mg Tablet, 160 MG PO DAILY, (Reported) Entered as Reported by: STEPHANIE CARDOZO on 10/22/17926 Hydromorphone HCl (Dilaudid) 2 Mg Tablet, 2 MG PO Q6H, (Reported) Entered as Reported by: JAMES RODGERS on 11/06/211509 Insulin Aspart (Novolog Flexpen) 300 Units/3 Ml Solution, 10 UNITS SQ AC, (Reported) Entered as Reported by: JAMES RODGERS on 11/06/211509 Insulin Degludec (Tresiba Flextouch U-100) 100 Unit/1 Ml Insuln.pen, 44 UNIT SQ HS, (Reported) Entered as Reported by: JAMES RODGERS on 11/06/211509 Isosorbide Mononitrate (Isosorbide Mononitrate ER) 60 Mg Tab, 60 MG PO DAILY, (Reported) Entered as Reported by: JULIANO ESTRADA on 03/28/161157 Levothyroxine Sodium (Synthroid) 200 Mcg Tablet, 275 MCG PO DAILY, (Reported) Entered as Reported by: JAMES RODGERS on 11/06/211509 Losartan Potassium (Cozaar) 25 Mg Tablet, 25 MG PO DAILY, (Reported) Entered as Reported by: STEPHANIE CARDOZO on 10/22/17926 Metoprolol Succinate (Metoprolol Succinate) 100 Mg Tab.er.24h, 100 MG PO DAILY, (Reported) Entered as Reported by: JULIANO ESTRADA on 03/28/16 1158 [place]-3 Fatty Acids/Fish Oil (Fish Oil 1,000 mg Softgel) 1 Each Capsule, 2 EACH PO DAILY, (Reported) Entered as Reported by: STEPHANIE CARDOZO on 10/22/17 0927 Triamterene/Hydrochlorothiazid (Triamterene-Hctz 37.5-25 mg Cp) 1 Each Capsule, 1 TAB PO DAILY, (Reported) Entered as Reported by: JULIANO ESTRADA on 03/28/16 1158 Review of Systems Review of Systems Constitutional: see HPI EENTM: blurred vision, nose congestion Gastrointestinal: nausea Genitourinary: no symptoms reported : No Musculoskeletal: other (Leg swelling) Skin: no symptoms reported Psychiatric/Neurological: Headache, Tingling All Other Systems Reviewed Negative Unless Noted: Yes Past Bnftsxt-Ghtnwb-Ogaryy Hx Patient Social History Tobacco Use?: Yes Tobacco type used: Cigarettes Smoking Status: Current Everyday Smoker Substance use?: No Alcohol Use?: No Pt feels they are or have been: No Immunizations Up To Date Influenza Vaccine Up-to-Date: Yes; Up-to-Date First/Initial COVID19 Vaccinat: 2020 Second COVID19 Vaccination Adriano: 2020 COVID19 Vaccine Instrument/Control Technician: DARIO Seasonal Allergies Seasonal Allergies: Yes Past Medical History Surgeries: Yes (ventral hernia,CARPAL TUNNEL MATT, CARTID ENDARTERECTOMY) Abdominal, Appendectomy, Coronary Stent, Gallbladder, Hysterectomy, Orthopedic, Thyroidectomy, Vascular Surgery Respiratory: Yes (O2 2L NC AT NIGHT ) Cardiac: Yes (STENT x2, ) Coronary Artery Disease, Heart Attack, High Cholesterol, Hypertension Neurological: Yes (STROKE IN DECEMBER OF 2013) Stroke Reproductive Disorders: Yes (CYSTOCELE, RECTOCELE) Female Reproductive Disorders: Denies 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 Sexually Transmitted Disease: Yes (HPV) HIV/AIDS: No Genitourinary: No Gastrointestinal: Yes Gastroesophageal Reflux, Hiatal Hernia Musculoskeletal: Yes (BULGING DISC) Arthritis, Chronic Back Pain Endocrine: Yes Diabetes, Insulin dep, Hypothyroidsim HEENT: No Loss of Vision: Denies Hearing Impairment: Denies Cancer: Yes Cervical, Thyroid What Type of Treatment Did You: Surgical Intervention Psychosocial: Yes Anxiety Integumentary: No Blood Disorders: No Adverse Reaction/Blood Tranf: No (N/A) Family Medical History Cancer 03 FATHER, Onset:60 years & older 03 MOTHER, Onset:62 09 SISTER, Onset:53 Family history: Breast disease 09 SISTER, Onset:53 Family history: Cardiovascular disease 09 SISTER Family history: Gastrointestinal disease 09 SISTER (Crohns disease sister) History of - disorder 09 SISTER (Mental disorder bipolar) Malignant neoplasm of lung 09 SISTER (38 year old tumor in lung and monitoring) Psychotic disorder 09 SISTER, Onset:40's - 50 Visual impairment 03 FATHER, Onset:50's - 60 03 MOTHER, Onset:Adolescence 09 BROTHER (glasses) 09 SISTER, Onset:25's - 30 09 SISTER (glasses) 09 SISTER, Onset:15's - 20 09 SISTER, Onset:20's - 25 No Family History of: Abdominal aortic aneurysm Stanly's disease Alcoholism Aphasia Cancer of colon Cataract Chest pain Congenital heart disease Congestive heart failure Cystic fibrosis Dementia Dysphagia Family history: Allergy Family history: Alzheimer's disease Family history: Arthritis Family history: Asthma Family history: Coronary thrombosis Family history: Diabetes mellitus Family history: Glaucoma Family history: Hypertension Family history: Osteoporosis Family history: Thyroid disorder Headache Hearing loss Heart disease Hereditary disease History of - anemia History of - respiratory disease History of drug abuse Human immunodeficiency virus (HIV) seropositivity Hypercholesterolemia Infertile Kidney disease Myocardial infarction Parkinson's disease Prostate cancer Seizure disorder Stroke Tuberculosis Physical Exam Vital Signs Vital Signs - First Documented 12/13/21 14:42 Temp 36.4 Pulse 71 Resp 18 B/P (MAP) 185/78 (113) Pulse Ox 98 Capillary Refill : Less Than 3 Seconds Height, Weight, BMI Height: 5'8.00" Weight: 234lbs. 4.0oz. 106.314171up; 39.00 BMI Method:Stated General Appearance: No Apparent Distress, WD/WN Eyes: Bilateral Eye Normal Inspection, Bilateral Eye PERRL, Bilateral Eye EOMI HEENT: PERRL/EOMI, Pharynx Normal Neck: Full Range of Motion, Normal Inspection, Non Tender, Supple Respiratory: Lungs Clear, Normal Breath Sounds, No Accessory Muscle Use, No Respiratory Distress Cardiovascular: Regular Rate, Rhythm, Normal Peripheral Pulses Gastrointestinal: Normal Bowel Sounds, Non Tender, Soft Back: Normal Inspection Extremity: Normal Inspection, Non Tender, Pedal Edema (1+) Neurologic/Psychiatric: Alert, Oriented x3, No Motor/Sensory Deficits, Normal 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, 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 Norm as Tested Skin: Normal Color, Warm/Dry Lymphatic: Axilla Node Tender (R), Other (no supraclavicular nodes) Focused Exam Lactate Level 12/13/21 15:30: Lactic Acid Level 1.74 Lactic Acid Level Laboratory Tests Test 12/13/21 15:30 Lactic Acid Level 1.74 MMOL/L (0.50-2.00) Progress/Results/Core Measures Suspected Sepsis SIRS Temperature: Pulse: 71 Respiratory Rate: 18 Laboratory Tests 12/13/21 14:30: White Blood Count 17.9H Blood Pressure 185 /78 Mean: 113 12/13/21 15:30: Lactic Acid Level 1.74 Laboratory Tests 12/13/21 14:30: Creatinine 0.86, INR Comment 1.0, Platelet Count 310, Total Bilirubin 0.6 Results/Orders Lab Results Laboratory Tests Test 12/13/21 14:30 12/13/21 14:35 12/13/21 15:30 12/13/21 15:49 Range/Units White Blood Count 17.9 H 4.3-11.0 10^3/uL Red Blood Count 4.23 3.80-5.11 10^6/uL Hemoglobin 12.1 11.5-16.0 g/dL Hematocrit 34 L 35-52 % Mean Corpuscular Volume 80 80-99 fL Mean Corpuscular Hemoglobin 29 25-34 pg Mean Corpuscular Hemoglobin Concent 36 32-36 g/dL Red Cell Distribution Width 13.4 10.0-14.5 % Platelet Count 310 130-400 10^3/uL Mean Platelet Volume 9.5 9.0-12.2 fL Immature Granulocyte % (Auto) 5 % Neutrophils (%) (Auto) 84 H 42-75 % Lymphocytes (%) (Auto) 7 L 12-44 % Monocytes (%) (Auto) 4 0-12 % Eosinophils (%) (Auto) 0 0-10 % Basophils (%) (Auto) 0 0-10 % Neutrophils # (Auto) 15.0 H 1.8-7.8 X 10^3 Lymphocytes # (Auto) 1.3 1.0-4.0 X 10^3 Monocytes # (Auto) 0.7 0.0-1.0 X 10^3 Eosinophils # (Auto) 0.1 0.0-0.3 10^3/uL Basophils # (Auto) 0.1 0.0-0.1 10^3/uL Immature Granulocyte # (Auto) 0.9 H 0.0-0.1 10^3/uL Neutrophils % (Manual) 85 % Lymphocytes % (Manual) 8 % Monocytes % (Manual) 3 % Eosinophils % (Manual) 1 % Atypical Lymphocytes 3 % Poikilocytosis SLIGHT Microcytosis SLIGHT [place] Cells MODERATE Prothrombin Time 13.1 12.2-14.7 SEC INR Comment 1.0 0.8-1.4 Activated Partial Thromboplast Time 34 24-35 SEC Sodium Level 111 *L 135-145 MMOL/L Potassium Level 4.4 3.6-5.0 MMOL/L Chloride Level 77 L 98-107 MMOL/L Carbon Dioxide Level 24 21-32 MMOL/L Anion Gap 10 5-14 MMOL/L Blood Urea Nitrogen 11 7-18 MG/DL Creatinine 0.86 0.60-1.30 MG/DL Estimat Glomerular Filtration Rate 68 BUN/Creatinine Ratio 13 Glucose Level 158 H 70-105 MG/DL Calcium Level 8.8 8.5-10.1 MG/DL Corrected Calcium 9.1 8.5-10.1 MG/DL Total Bilirubin 0.6 0.1-1.0 MG/DL Aspartate Amino Transf (AST/SGOT) 23 5-34 U/L Alanine Aminotransferase (ALT/SGPT) 22 0-55 U/L Alkaline Phosphatase 100 40-136 U/L Total Protein 7.3 6.4-8.2 GM/DL Albumin 3.6 3.2-4.5 GM/DL C-Reactive Protein High Sensitivity 3.43 H 0.00-0.50 MG/DL Procalcitonin 0.12 H <0.10 NG/ML Lactic Acid Level 1.74 0.50-2.00 MMOL/L Influenza Type A (RT-PCR) Not Detected Not Detecte Influenza Type B (RT-PCR) Not Detected Not Detecte SARS-CoV-2 RNA (RT-PCR) Not Detected Not Detecte Test 12/13/21 16:14 Range/Units Urine Color YELLOW Urine Clarity CLEAR Urine pH 7.0 5-9 Urine Specific [place] 1.020 1.016-1.022 Urine Protein 3+ H NEGATIVE Urine Glucose (UA) 2+ H NEGATIVE Urine Ketones NEGATIVE NEGATIVE Urine Nitrite NEGATIVE NEGATIVE Urine Bilirubin NEGATIVE NEGATIVE Urine Urobilinogen 0.2 < = 1.0 MG/DL Urine Leukocyte Esterase NEGATIVE NEGATIVE Urine RBC (Auto) 1+ H NEGATIVE Urine RBC 2-5 H /HPF Urine WBC 0-2 /HPF Urine Squamous Epithelial Cells 2-5 /HPF Urine Crystals NONE /LPF Urine Bacteria FEW H /HPF Urine Casts NONE /LPF Urine Mucus NEGATIVE /LPF Urine Yeast FEW H /HPF Urine Culture Indicated CULTURE PENDING My Orders Orders - MADDIE MILES MD Cbc With Automated Diff (12/13/21 15:02) Comprehensive Metabolic Panel (12/13/21 15:02) Blood Culture (12/13/21 15:02) Urinalysis (12/13/21 15:02) Urine Culture (12/13/21 15:02) Protime With Inr (12/13/21 15:02) Partial Thromboplastin Time (12/13/21 15:02) Chest 1 View, Ap/Pa Only (12/13/21 15:02) Ed Iv/Invasive Line Start (12/13/21 15:02) Ed Iv/Invasive Line Start (12/13/21 15:02) Vital Signs Adult Sepsis Patie Q15M (12/13/21 15:02) O2 (12/13/21 15:02) Remove Rings In Anticipation O (12/13/21 15:02) Lactic Acid Analyzer (12/13/21 15:02) Ns Iv 1000 Ml (Sodium Chloride 0.9%) (12/13/21 15:15) Ct Head Wo (12/13/21 15:16) Covid 19 Inhouse Test (12/13/21 15:34) Influenza A And B By Pcr (12/13/21 15:34) Isolation Central Supply Req (12/13/21 15:34) Manual Differential (12/13/21 14:30) Procalcitonin (Pct) (12/13/21 15:58) Hs C Reactive Protein (12/13/21 15:58) Methylprednisolone Sod Succ (Solu-Medrol (12/13/21 16:30) Famotidine Injection (Pepcid Injection) (12/13/21 16:30) Diphenhydramine Injection (Benadryl Inje (12/13/21 16:30) Ct Chest W (12/13/21 16:22) Iohexol Injection (Omnipaque 350 Mg/Ml 1 (12/13/21 17:15) Received Contrast (Hold Metformin- Contr (12/13/21 17:15) Ns (Ivpb) (Sodium Chloride 0.9% Ivpb Bag (12/13/21 17:15) Medications Given in ED Vital Signs/I&O 12/13/21 12/13/21 14:42 18:00 Temp 36.4 Pulse 71 68 Resp 18 18 B/P (MAP) 185/78 (113) 172/78 Pulse Ox 98 98 Capillary Refill : Less Than 3 Seconds Blood Pressure Mean: 113 Progress Note : Time: 16:21 Progress Note Discussed patient allergy to iodinated contrast/IV dye. She states she gets a "rash"/hives. She has been pretreated in the past successfully prior to scans with dye. Will order Solu-Medrol Pepcid and Benadryl for just prior to chest CT with contrast. 1700 Case was discussed with Dr Fair, will accept in transfer to [facility] secondary to bed availability at our facility Diagnostic Imaging Diagonstic Imaging: Xray Plain Films/CT/US/NM/MRI: chest Comments [facility] [place], [place] NAME: NICOLLE WILCOX [employer] REC#: [id number] PT STATUS: REG ER : 1960 PHYSICIAN: MADDIE MILES MD ADMIT DATE: 12/13/21/ER Draft Date of Exam:12/13/21 CHEST 1 VIEW, AP/PA ONLY EXAMINATION: Chest, one view. HISTORY: Cough and malaise. COMPARISON: 03/28/2016. FINDINGS: There is prominence of the right hilum. No pleural effusion or pneumothorax. No edema or pneumonia. Heart size is normal. IMPRESSION: 1. Prominence of the right hilum concerning for lymphadenopathy or a mass. Chest CT with contrast is recommended. Dictated on workstation # [id number] Dict: 12/13/21 1543 Trans: 12/13/21 1545 [id number] Interpreted by: RAFY STAFFORD MD Electronically signed by: [facility], [place] NAME: NICOLLE WILCOX [facility] REC#: [id number] PT STATUS: REG ER : 1960 PHYSICIAN: MADDIE MILES MD ADMIT DATE: 12/13/21/ER Signed Date of Exam:12/13/21 CT HEAD WO EXAMINATION: CT head without contrast. TECHNIQUE: Multiple contiguous axial images were obtained through the brain without the use of intravenous contrast. All CT scans use one or more of the following dose optimizing techniques: automated exposure control, MA and/or KvP adjustment based on patient size and exam type or iterative reconstruction. HISTORY: Headache. Cough. COMPARISON: 12/27/2014. FINDINGS: No large acute territorial ischemia, mass, or hemorrhage. No midline shift or mass effect. Old infarct is seen in the right frontal lobe. Chronic infarct is also seen in the left basal ganglia. The ventricles, cortical sulci, and basilar cisterns are patent and unremarkable. The orbits are normal. Paranasal sinuses are normal. Mastoid air cells are clear. No soft tissue abnormality is seen. No osseus lesions or fractures are seen. IMPRESSION: 1. No large acute territorial ischemia, mass, or hemorrhage. 2. Chronic infarcts in the left basal ganglia and right frontal lobe. Dictated by: Dictated on workstation # [id number] Dict: 12/13/211714 Trans: 12/13/211724 [facility] [id number] Interpreted by: RANDA MCCLURE DO Electronically signed by: RANDA MCCLURE DO 12/13/21 172 [facility] [place], [place] NAME: NICOLLE WILCOX [facility] REC#: [id number] PT STATUS: REG ER : 1960 PHYSICIAN: MADDIE MILES MD ADMIT DATE: 12/13/21/ER Draft Date of Exam:12/13/21 CT CHEST W PROCEDURE: CT chest with contrast only. TECHNIQUE: Multiple contiguous axial images were obtained through the chest after administration of intravenous contrast. Auto Exposure Controls were utilized during the CT exam to meet ALARA standards for radiation dose reduction. INDICATION: Headache. Cough. Abnormal chest x-ray. COMPARISON: Chest radiograph 12/13/2021. FINDINGS: Mediastinal and right hilar lymphadenopathy. For example, a right hilar lymph node measures up to 2.0 cm in short axis dimension. Subcarinal lymph nodes measure up to 1.8 cm in short axis dimension. Irregular solid pulmonary nodule in the superior aspect of the right lower lobe measures up to 1.1 cm. There is also a small region of irregular consolidation more inferiorly in the right lower lobe measuring up to 2.0 cm. Left lung is clear. No pleural effusion or pneumothorax. Normal heart size. No pericardial effusion. Normal caliber thoracic aorta and central pulmonary arteries. Cholecystectomy. No acute osseous findings. IMPRESSION: 1. Indeterminate right hilar and mediastinal lymphadenopathy. 2. Irregular solid pulmonary nodule in the right lower lobe measuring 1.1 cm with an additional region of irregular consolidation measuring 2.0 cm. 3. Recommend further evaluation with nuclear medicine FDG PET/CT and/or tissue sampling. Dictated on workstation # [id number] Dict: 12/13/21 1716 Trans: 12/13/21 1725 [facility] [id number] Interpreted by: ALDEN LINK MD Electronically signed by: Departure Impression Primary Impression: Hyponatremia Additional Impressions: Mediastinal lymphadenopathy Bronchitis Tobacco dependence Disposition: XFER SHT-TRM HOSP Condition: Stable Transfer Transfer Reason: Patient preference Time Spoke to Accepting Phy: 17:00 Transfer Progress Notes discussed with Dr Fair Transfer Time: 18:00 Transfer Facility: [facility] Method of Transfer: Private Vehicle Departure-Patient Inst. Referrals: CAMILO NEGRETE MD (PCP/Family) Primary Care Physician MADDIE MILES MD Dec 13, 2021 16:09
[2021-12-13 16:13] LABS: ATYPICAL LYMPHOCYTES 3 %; EOSINOPHILS % (MANUAL) 1 %; LYMPHOCYTES % (MANUAL) 8 %; MICROCYTOSIS SLIGHT; MONOCYTES % (MANUAL) 3 %; NEUTROPHILS % (MANUAL) 85 %; POIKILOCYTOSIS SLIGHT
[2021-12-13 16:14] LABS: BURR CELLS MODERATE
[2021-12-13 16:21] LABS: BILIRUBIN,URINE NEGATIVE (NEGATIVE); CLARITY,URINE CLEAR; COLOR,URINE YELLOW; GLUCOSE, URINE (UA) 2+ (NEGATIVE); KETONES,URINE NEGATIVE (NEGATIVE); LEUKOCYTE ESTERASE ,URINE NEGATIVE (NEGATIVE); NITRITE,URINE NEGATIVE (NEGATIVE); PROTEIN,URINE 3+ (NEGATIVE)
[2021-12-13] MEDS ORDERED: diphenhydrAMINE 50 MG/ML INJ (BENADRYL) IVP ONE (16:30)
[2021-12-13] MEDS ORDERED: FAMOTIDINE 20MG/2ML IV (PEPCID) IVP ONE (16:30)
[2021-12-13] MEDS ORDERED: methylPREDNISolone 125 MG (Solu-MEDROL) VIAL IVP ONE (16:30)
[2021-12-13 16:56] LABS: BACTERIA,URINE FEW /HPF; WBC,URINE 0-2 /HPF; YEAST,URINE FEW /HPF
[2021-12-13] MEDS ORDERED: HOLD METFORMIN - RECEIVED CONTRAST 20 ML VIAL IV SCH (17:15)
[2021-12-13] MEDS ORDERED: IOHEXOL 350 MG/ML 100 ML (OMNIPAQUE 350) VIAL IV ONE (17:15)
[2021-12-13] MEDS ORDERED: NS 100 ML (IVPB) BAG IV ONE (17:15)
--- NOTE | 2021-12-13 17:17 | Diagnostic Imaging Report ---
EXAMINATION: CT head without contrast. TECHNIQUE: Multiple contiguous axial images were obtained through the brain without the use of intravenous contrast. All CT scans use one or more of the following dose optimizing techniques: automated exposure control, MA and/or KvP adjustment based on patient size and exam type or iterative reconstruction. HISTORY: Headache. Cough. COMPARISON: 12/27/2014. FINDINGS: No large acute territorial ischemia, mass, or hemorrhage. No midline shift or mass effect. Old infarct is seen in the right frontal lobe. Chronic infarct is also seen in the left basal ganglia. The ventricles, cortical sulci, and basilar cisterns are patent and unremarkable. The orbits are normal. Paranasal sinuses are normal. Mastoid air cells are clear. No soft tissue abnormality is seen. No osseus lesions or fractures are seen. IMPRESSION: 1. No large acute territorial ischemia, mass, or hemorrhage. 2. Chronic infarcts in the left basal ganglia and right frontal lobe. Dictated by: Dictated on workstation # [id number]
--- NOTE | 2021-12-13 17:26 | Diagnostic Imaging Report ---
PROCEDURE: CT chest with contrast only. TECHNIQUE: Multiple contiguous axial images were obtained through the chest after administration of intravenous contrast. Auto Exposure Controls were utilized during the CT exam to meet ALARA standards for radiation dose reduction. INDICATION: Headache. Cough. Abnormal chest x-ray. COMPARISON: Chest radiograph 12/13/2021. FINDINGS: Mediastinal and right hilar lymphadenopathy. For example, a right hilar lymph node measures up to 2.0 cm in short axis dimension. Subcarinal lymph nodes measure up to 1.8 cm in short axis dimension. Irregular solid pulmonary nodule in the superior aspect of the right lower lobe measures up to 1.1 cm. There is also a small region of irregular consolidation more inferiorly in the right lower lobe measuring up to 2.0 cm. Left lung is clear. No pleural effusion or pneumothorax. Normal heart size. No pericardial effusion. Normal caliber thoracic aorta and central pulmonary arteries. Cholecystectomy. No acute osseous findings. IMPRESSION: 1. Indeterminate right hilar and mediastinal lymphadenopathy. 2. Irregular solid pulmonary nodule in the right lower lobe measuring 1.1 cm with an additional region of irregular consolidation measuring 2.0 cm. 3. Recommend further evaluation with nuclear medicine FDG PET/CT and/or tissue sampling. Dictated by: Dictated on workstation # [id number]
[2021-12-13 18:00] VITALS: BP 172/78
== END 2021-12-13 18:00 | disposition short-term general hospital (02) ==
LOC: EDUNIT# 13:52 → ER 13:53
DX: E87.1 Hypo-osmolality and hyponatremia (principal); R59.1 Generalized enlarged lymph nodes; J40 Bronchitis, not specified as acute or chronic; I25.2 Old myocardial infarction; I10 Essential (primary) hypertension; E03.9 Hypothyroidism, unspecified; E11.9 Type 2 diabetes mellitus without complications; F17.200 Nicotine dependence, unspecified, uncomplicated; F17.210 Nicotine dependence, cigarettes, uncomplicated; Z86.73 Personal history of transient ischemic attack (TIA), and cerebral infarction without residual deficits; Z20.822 Contact with and (suspected) exposure to COVID-19; Z79.4 Long term (current) use of insulin; Z79.890 Hormone replacement therapy; Z79.01 Long term (current) use of anticoagulants; Z79.82 Long term (current) use of aspirin; Z79.899 Other long term (current) drug therapy
CPT/HCPCS: 36415; 70450; 71045; 71260; 80053; 81000; 83605; 84145; 85007; 85027; 85610; 85730; 86141; 87040; 87088; 87636

== ENCOUNTER → 2021-12-14 | Outpatient (CLI) | payer MEDICARE, MEDICAID ==
[2021-12-14 14:10] LABS: ABSOLUTE RETIC # 171 10e9/uL (24-90); RETICULOCYTE % 3.52 % (0.50-2.40)
[2021-12-14 14:19] LABS: ACANTHOCYTES MARKED; BAND NEUTROPHILS 1 %; BURR CELLS MARKED; LYMPHOCYTES % (MANUAL) 1 %; MONOCYTES % (MANUAL) 4 %; NEUTROPHILS % (MANUAL) 94 %; POLYCHROMASIA SLIGHT
== END ==
LOC: GIR 14:00
PROVIDERS: ATTEND Internal Medicine
DX: E87.1 Hypo-osmolality and hyponatremia (principal)
CPT/HCPCS: 85007; 85045; 85055